=== PATIENT | female | born 1960 | race Caucasian/White ===

== ENCOUNTER 2020-05-16 11:58 | Inpatient (IN) | payer MEDICARE, MEDICAID ==
[~2020-05-16] VITALS: Ht 167.6 cm; Wt 79.8 kg
[~2020-05-16 11:58] MED LIST: ARIP10TA16 MT; ATOR10TA69 MT; BUSP5TAB3 MT; BUSP5TAB3 PO; DOCU250C14 MT; FERR325T23 PO; LEVO50TA8 PO; QUET100T33 MT
[2020-05-16] MEDS ORDERED: SODIUM CHLORIDE 0.9% 1,000 ML IV ONE (13:30)
[2020-05-16 13:52] LABS: BASOPHILS % 1.1 % (0.0-2.0); EOSINOPHILS % 4.1 % (0.0-5.0); LYMPHOCYTES % 27.7 % (20.0-50.0); MEAN CORPUSCULAR HEMOGLOBIN 23.9 pg (28.0-32.0); MEAN CORPUSCULAR VOLUME 84.2 fL (81.0-99.0); MONOCYTES % 8.5 % (2.0-8.0); NEUTROPHILS % 58.6 % (40.0-76.0); PLATELET 265 x1000/uL (130-400); RED BLOOD CELL COUNT 1.22 mill/uL (4.2-5.4); RED CELL DISTRIBUTION WIDTH 19.7 % (11.6-14.6)
[2020-05-16 13:56] LABS: CHLORIDE 106 mEq/L (98-107)
[2020-05-16 13:59] LABS: INR 1.3; PROTHROMBIN TIME 13.8 sec (9.6-11.0)
[2020-05-16 14:00] LABS: HEMOGLOBIN. 2.9 g/dL (12.0-16.0)
[2020-05-16 14:01] LABS: HEMATOCRIT. 10.3 % (36.0-48.0)
[2020-05-16 14:30] LABS: CREATINE KINASE 233 IU/L (26-192)
[2020-05-16 14:44] LABS: CLARITY URINE CLOUDY (CLEAR); COLOR URINE YELLOW (YELLOW); KETONES URINE NEGATIVE (NEGATIVE); LEUKOCYTE ESTERASE URINE 2+ (NEGATIVE); NITRITE URINE NEGATIVE (NEGATIVE); OCCULT BLOOD URINE NEGATIVE (NEGATIVE); PH URINE 5.5 (4.5-8.0); PROTEIN URINE NEGATIVE (NEGATIVE); SPECIFIC GRAVITY URINE 1.012 (1.005-1.030)
[2020-05-16] MEDS ORDERED: CEFTRIAXONE 1 G PREMIX 50 ML IV ONE (15:00)
[2020-05-16] MEDS ORDERED: POTASSIUM CHLORIDE INJ 40 MEQ in DEXT 5% WATER 250 ML IV ONE (15:00)
[2020-05-16 22:12] LABS: HEMATOCRIT 27.7 % (36.0-48.0); HEMOGLOBIN 9.1 g/dL (12.0-16.0)
[2020-05-16] MEDS ORDERED: MAGNESIUM/ALUMINUM HYDROXIDE/SIMETHICONE 30ML UDC PO PRN (22:30)
[2020-05-16] MEDS ORDERED: ONDANSETRON HCL 4MG/2ML INJ IV PRN (22:30)
[2020-05-16] MEDS ORDERED: NA PHOS,M-B/NA PHOS,DI-BA ENEMA 118ML PR PRN (22:30)
[2020-05-16] MEDS ORDERED: ACETAMINOPHEN 650MG SUPP PR PRN (22:30)
[2020-05-16] MEDS ORDERED: ACETAMINOPHEN 325MG TABLET PO PRN (22:30)
[2020-05-16] MEDS ORDERED: DOCUSATE SODIUM 100MG CAPSULE PO PRN (22:30)
[2020-05-16] MEDS ORDERED: DIPHENHYDRAMINE 50MG/ML VIAL IV PRN (22:30)
[2020-05-16] MEDS ORDERED: GUAIFENESIN 200MG/10ML SUGAR FREE UDC PO PRN (22:30)
[2020-05-16] MEDS ORDERED: CLONIDINE 0.1MG TABLET PO PRN (22:30)
[2020-05-16] MEDS ORDERED: ACETAMINOPHEN 650MG/20.3ML UDC GT PRN ×2 (22:30)
[2020-05-16] MEDS ORDERED: VANCOMYCIN 1 G PREMIX 200 ML IV NR (23:00)
[2020-05-16] MEDS: SODIUM CHLORIDE 0.9% 1,000 ML IV SCH (23:30)
[2020-05-16] MEDS: PANTOPRAZOLE SODIUM 40 MG/VIAL IV SCH (23:43)
[2020-05-17] VITALS (13 sets, daily range): BP systolic 84–116; BP diastolic 52–74
[2020-05-17] MEDS ORDERED: PRED1TAB MT (00:53)
[2020-05-17] MEDS ORDERED: QUET25TA MT (00:53)
[2020-05-17] MEDS: LEVOFLOXACIN 500MG PREMIX 100 ML IV SCH (02:05)
[2020-05-17] MEDS ORDERED: PERMETHRIN 5% CREAM 60GM TOP SCH (03:00)
[2020-05-17] MEDS: METRONIDAZOLE 500 MG PREMIX 100 ML IV SCH ×3 (03:11→18:17)
[2020-05-17 06:56] LABS: BASOPHILS % 0.3 % (0.0-2.0); EOSINOPHILS % 2.1 % (0.0-5.0); HEMATOCRIT. 26.6 % (36.0-48.0); HEMOGLOBIN. 8.6 g/dL (12.0-16.0); MEAN CORPUSCULAR HEMOGLOBIN 25.8 pg (28.0-32.0); MEAN CORPUSCULAR VOLUME 80.2 fL (81.0-99.0); MEAN PLATELET VOLUME 10.4 fl (7.4-10.4); MONOCYTES % 9.8 % (2.0-8.0); NEUTROPHILS % 70.8 % (40.0-76.0); PLATELET 181 x1000/uL (130-400); RED BLOOD CELL COUNT 3.32 mill/uL (4.2-5.4); RED CELL DISTRIBUTION WIDTH 16.5 % (11.6-14.6)
[2020-05-17 07:08] LABS: CHLORIDE 108 mEq/L (98-107)
[2020-05-17 07:21] LABS: CREATINE KINASE 251 IU/L (26-192); LDL CHOLESTEROL 74 mg/dL (5-100)
[2020-05-17 07:22] LABS: HDL CHOLESTEROL 28 mg/dL (40-59)
[2020-05-17 07:25] LABS: CREATINE KINASE MB FRACTION 5.8 ng/mL (0.5-3.6)
[2020-05-17] MEDS: PANTOPRAZOLE SODIUM 40 MG/VIAL IV SCH (09:12)
[2020-05-17] MEDS ORDERED: VANCOMYCIN 1 G PREMIX 200 ML IV SCH (11:00)
[2020-05-17 11:50] LABS: *AMPHETAMINES SCREEN URINE NEGATIVE (NEGATIVE); *BARBITURATES SCREEN URINE NEGATIVE (NEGATIVE); *BENZODIAZEPINES SCREEN URINE NEGATIVE (NEGATIVE); *COCAINE SCREEN URINE NEGATIVE (NEGATIVE); METHADONE URINE SCREEN NEGATIVE (NEGATIVE)
[2020-05-17 11:51] LABS: OPIATES URINE SCREEN NEGATIVE (NEGATIVE); PHENCYCLIDINE URINE SCREEN NEGATIVE (NEGATIVE)
[2020-05-17 11:54] LABS: CANNABINOID URINE SCREEN PRESUMTIVE POSITIVE (NEGATIVE)
[2020-05-17] MEDS ORDERED: INFLUENZA VACCINE 05/PF 0.5 ML VIAL IM ONE (12:00)
[2020-05-17] MEDS ORDERED: PNEUMOCOCCAL 23-VAL P-SAC VAC 0.5 ML IM ONE (12:00)
[2020-05-17] MEDS: VANCOMYCIN 1250MG in DEXTROSE 5% WATER 250ML IV SCH ×2 (13:16→22:53)
[2020-05-17 16:04] LABS: TOTAL IRON BINDING CAPACITY 248 ug/dL (250-450)
[2020-05-17 16:15] LABS: CREATINE KINASE 246 IU/L (26-192)
[2020-05-17 16:16] LABS: CREATINE KINASE MB FRACTION 5.4 ng/mL (0.5-3.6)
[2020-05-17 17:40] LABS: FOLIC ACID (FOLATE) SERUM 4.2 ng/mL (>5.38)
[2020-05-18] VITALS (11 sets, daily range): BP systolic 93–116; BP diastolic 53–94
[2020-05-18] MEDS: LEVOFLOXACIN 500MG PREMIX 100 ML IV SCH (00:35)
[2020-05-18] MEDS: SODIUM CHLORIDE 0.9% 1,000 ML IV SCH ×3 (00:35→23:31)
[2020-05-18] MEDS: METRONIDAZOLE 500 MG PREMIX 100 ML IV SCH ×2 (01:55→08:47)
[2020-05-18 06:02] LABS: CHLORIDE 106 mEq/L (98-107)
[2020-05-18] MEDS: PANTOPRAZOLE SODIUM 40 MG/VIAL IV SCH (08:47)
[2020-05-18] MEDS: VANCOMYCIN 1250MG in DEXTROSE 5% WATER 250ML IV SCH (10:11)
[2020-05-18] MEDS: MEROPENEM 500MG in NORMAL SALINE 50ML IV SCH ×2 (13:33→21:20)
[2020-05-18] MEDS: FOLIC ACID 1MG TABLET PO SCH (13:33)
[2020-05-18 13:50] LABS: HEPATITIS B SURFACE ANTIGEN NEGATIVE
[2020-05-18 14:19] LABS: HEPATITIS A AB IGM NEGATIVE (NEGATIVE)
[2020-05-18] MEDS ORDERED: METOCLOPRAMIDE HCL 5MG TABLET PO NR (15:00)
[2020-05-18] MEDS ORDERED: NA PHOS,M-B/NA PHOS,DI-BA ENEMA 118ML PR PRN (15:00)
[2020-05-18] MEDS ORDERED: BISACODYL 5MG TABLET PO NR (15:00)
[2020-05-18] MEDS ORDERED: SORBITOL 70% SOLN 30ML PO NR (15:30)
[2020-05-18] MEDS: FERROUS SULFATE 325MG TABLET PO SCH (17:32)
[2020-05-18] MEDS ORDERED: METOCLOPRAMIDE HCL 5MG TABLET PO PRN (18:00)
[2020-05-18] MEDS: ASCORBIC ACID 500 MG TABLET PO SCH (21:20)
[2020-05-19] VITALS (10 sets, daily range): BP systolic 98–135; BP diastolic 49–99
[2020-05-19] MEDS: MEROPENEM 500MG in NORMAL SALINE 50ML IV SCH ×3 (05:16→21:55)
[2020-05-19 07:20] LABS: BASOPHILS % 1.3 % (0.0-2.0); EOSINOPHILS % 7.3 % (0.0-5.0); HEMATOCRIT. 30.3 % (36.0-48.0); HEMOGLOBIN. 9.5 g/dL (12.0-16.0); LYMPHOCYTES % 19.8 % (20.0-50.0); MEAN CORPUSCULAR HEMOGLOBIN 25.9 pg (28.0-32.0); MEAN CORPUSCULAR VOLUME 82.2 fL (81.0-99.0); MEAN PLATELET VOLUME 10.5 fl (7.4-10.4); MONOCYTES % 10.7 % (2.0-8.0); NEUTROPHILS % 60.9 % (40.0-76.0); PLATELET 158 x1000/uL (130-400); RED BLOOD CELL COUNT 3.69 mill/uL (4.2-5.4); RED CELL DISTRIBUTION WIDTH 16.9 % (11.6-14.6)
[2020-05-19 07:54] LABS: CHLORIDE 108 mEq/L (98-107)
[2020-05-19] MEDS: ASCORBIC ACID 500 MG TABLET PO SCH ×2 (08:37→21:54)
[2020-05-19] MEDS: FERROUS SULFATE 325MG TABLET PO SCH ×3 (08:37→17:36)
[2020-05-19] MEDS: PANTOPRAZOLE SODIUM 40 MG/VIAL IV SCH (08:37)
[2020-05-19] MEDS: FOLIC ACID 1MG TABLET PO SCH (08:37)
[2020-05-19] MEDS ORDERED: DOCUSATE SODIUM 250MG CAPSULE PO PRN (12:30)
[2020-05-19] MEDS: SODIUM CHLORIDE 0.9% 1,000 ML IV SCH (13:15)
[2020-05-19] MEDS ORDERED: NA PHOS,M-B/NA PHOS,DI-BA ENEMA 118ML PR NR (13:15)
[2020-05-19] MEDS: LACTULOSE 20G/30ML UDC PO SCH ×2 (14:00→21:55)
[2020-05-20] VITALS (8 sets, daily range): BP systolic 97–111; BP diastolic 59–75
[2020-05-20] MEDS: SODIUM CHLORIDE 0.9% 1,000 ML IV SCH (01:30)
[2020-05-20] MEDS: MEROPENEM 500MG in NORMAL SALINE 50ML IV SCH ×2 (06:50→15:07)
[2020-05-20] MEDS: LACTULOSE 20G/30ML UDC PO SCH ×2 (06:51→15:07)
[2020-05-20 07:17] LABS: INR 1.2; PROTHROMBIN TIME 12.5 sec (9.6-11.0)
[2020-05-20 07:19] LABS: HEMATOCRIT. 29.5 % (36.0-48.0); HEMOGLOBIN. 9.3 g/dL (12.0-16.0); MEAN CORPUSCULAR HEMOGLOBIN 25.6 pg (28.0-32.0); MEAN CORPUSCULAR VOLUME 81.5 fL (81.0-99.0); MEAN PLATELET VOLUME 10.1 fl (7.4-10.4); PLATELET 201 x1000/uL (130-400); RED BLOOD CELL COUNT 3.62 mill/uL (4.2-5.4); RED CELL DISTRIBUTION WIDTH 16.4 % (11.6-14.6)
[2020-05-20] MEDS: FERROUS SULFATE 325MG TABLET PO SCH ×2 (08:31→13:24)
[2020-05-20] MEDS: FOLIC ACID 1MG TABLET PO SCH (08:32)
[2020-05-20] MEDS: PANTOPRAZOLE SODIUM 40 MG/VIAL IV SCH (08:32)
[2020-05-20] MEDS: ASCORBIC ACID 500 MG TABLET PO SCH (08:32)
[2020-05-20] MEDS ORDERED: FOLI-43 PO (10:19)
[2020-05-20] MEDS ORDERED: ASCO500T20 PO (10:19)
[2020-05-20] MEDS ORDERED: FERR325T23 PO (10:19)
[2020-05-20] MEDS ORDERED: MAGNESIUM 2 G PREMIX 50 ML IV NR (11:00)
[2020-05-20 14:05] LABS: NUCLEATED RED BLOOD CELLS 2 /100 WBC
[2020-05-20 14:06] LABS: PLATELET ESTIMATE NORMAL
== END 2020-05-20 18:20 | DRG 811 ==
LOC: ER 12:05 → 5EST 16:05 → EDBEDREQ 16:12 → ENRESERV 20:17
PROVIDERS: ADMIT Family Medicine; ATTEND Family Medicine
PROC: 30233N1 Transfusion of Nonautologous Red Blood Cells into Peripheral Vein, Percutaneous Approach (ICD-10-PCS; principal; 2020-05-16)
PROC: 0HBRXZZ Excision of Toe Nail, External Approach (ICD-10-PCS; 2020-05-17)
PROC: 0HBRXZZ Excision of Toe Nail, External Approach (ICD-10-PCS; 2020-05-17)
PROC: 0HBRXZZ Excision of Toe Nail, External Approach (ICD-10-PCS; 2020-05-17)
PROC: 0HBRXZZ Excision of Toe Nail, External Approach (ICD-10-PCS; 2020-05-17)
PROC: 0HBRXZZ Excision of Toe Nail, External Approach (ICD-10-PCS; 2020-05-17)
PROC: 0HBRXZZ Excision of Toe Nail, External Approach (ICD-10-PCS; 2020-05-17)
PROC: 0HBRXZZ Excision of Toe Nail, External Approach (ICD-10-PCS; 2020-05-17)
PROC: 0HBRXZZ Excision of Toe Nail, External Approach (ICD-10-PCS; 2020-05-17)
PROC: 0HBRXZZ Excision of Toe Nail, External Approach (ICD-10-PCS; 2020-05-17)
PROC: 0HBRXZZ Excision of Toe Nail, External Approach (ICD-10-PCS; 2020-05-17)
DX: D50.9 Iron deficiency anemia, unspecified (principal); L89.213 Pressure ulcer of right hip, stage 3; E46 Unspecified protein-calorie malnutrition; J44.9 Chronic obstructive pulmonary disease, unspecified; L89.222 Pressure ulcer of left hip, stage 2; E87.6 Hypokalemia; L60.2 Onychogryphosis; Z68.28 Body mass index [BMI] 28.0-28.9, adult; E53.8 Deficiency of other specified B group vitamins; E66.9 Obesity, unspecified; F17.210 Nicotine dependence, cigarettes, uncomplicated; F20.9 Schizophrenia, unspecified; I10 Essential (primary) hypertension; K70.0 Alcoholic fatty liver; K59.00 Constipation, unspecified; K70.30 Alcoholic cirrhosis of liver without ascites; I73.9 Peripheral vascular disease, unspecified; M06.9 Rheumatoid arthritis, unspecified; E88.09 Other disorders of plasma-protein metabolism, not elsewhere classified; F14.10 Cocaine abuse, uncomplicated; M16.11 Unilateral primary osteoarthritis, right hip; N30.90 Cystitis, unspecified without hematuria; Z74.01 Bed confinement status; Z87.81 Personal history of (healed) traumatic fracture; Z88.9 Allergy status to unspecified drugs, medicaments and biological substances; Z90.49 Acquired absence of other specified parts of digestive tract; Z88.0 Allergy status to penicillin; Z79.899 Other long term (current) drug therapy; Z79.1 Long term (current) use of non-steroidal anti-inflammatories (NSAID); G40.909 Epilepsy, unspecified, not intractable, without status epilepticus
CPT/HCPCS: 36415; 71045; 74176; 76700; 80048; 80053; 80061; 80076; 80202; 80305; 81003; 82140; 82248; 82270; 82550; 82553; 82607; 82728; 82746; 83540; 83550; 83735; 84134; 84145; 84484; 85014; 85018; 85025; 86705; 86709; 86803; 86850; 86900; 86920; 87077; 87186; 87340; 90686; 90732; 93005; 93923; 93970; 96365; 97110; 97162; 97530; 99291; A6261; C9113; J0696; J1200; J1956; J2185; J3370; J3475; J3490; J7030; J7060; J8597; P9016